=== PATIENT | female | born 1980 | race African-American/Black ===

== ENCOUNTER 2016-07-26 01:14 | Emergency (ER) | payer OTHER ==
[~2016-07-26] VITALS: Ht 157.5 cm; Wt 72.6 kg
--- NOTE | ~2016-07-26 | EKG ---
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
[~2016-07-26 01:14] MED LIST: NOHOMEMEDICATIONS; NORCO 5-325 TA1 EACH PO
[2016-07-26] MEDS ORDERED: AMBIEN 5 MG TABL5 M1 PO (01:29)
[2016-07-26] MEDS ORDERED: ZOFRAN ODT4 MG PO (01:29)
[2016-07-26 01:39] LABS: ABSOLUTE NEUTROPHILS 4.2 thou/uL (1.4-8.2); BASOPHILS 0.9 % (0.0-2.0); EOSINOPHILS 1.3 % (0.0-3.0); HEMATOCRIT 38.1 % (37.0-47.0); HEMOGLOBIN 12.5 gm/dL (12.0-15.0); LYMPHOCYTES 31.7 % (24.0-44.0); MCH 27.2 pg (26.0-34.0); MCHC 32.8 g/dL (28.0-37.0); MONOCYTES 5.9 % (1.0-8.0); PLATELET COUNT 182 thou/uL (150-400); POLYS 60.2 % (36.0-66.0); RBC 4.59 mil/uL (4.20-5.00); RDW 14.5 % (10.5-14.5)
[2016-07-26 01:41] LABS: MANUAL DIFF NO
[2016-07-26 01:45] LABS: ANION GAP 12 mmol/L (7-16); BUN 13 mg/dL (7-18); CALCIUM 8.8 mg/dL (8.5-10.1); CHLORIDE 99 mmol/L (98-107); CO2 23 mmol/L (21-32); CREATININE 1.2 mg/dL (0.6-1.0); GLUCOSE 152 mg/dL (74-106); POTASSIUM 3.4 mmol/L (3.5-5.1); SODIUM 134 mmol/L (136-145)
[2016-07-26 01:54] LABS: TROPONIN-I < 0.04 ng/mL (<0.04-0.07)
[2016-07-26 02:37] VITALS: BP 140/80
[2016-07-26 04:12] LABS: LARGE PLATELETS RARE
== END 2016-07-26 02:39 | disposition home or self-care (01) ==
LOC: ER 01:14
PROVIDERS: Emergency Medicine
DX: R07.89 Other chest pain (principal); R20.2 Paresthesia of skin; Z88.0 Allergy status to penicillin; Z88.6 Allergy status to analgesic agent

== ENCOUNTER 2020-11-07 23:55 | Emergency (ER) | payer OTHER ==
[~2020-11-07] VITALS: Ht 157.5 cm; Wt 82.6 kg
[~2020-11-07 23:55] MED LIST changes: +AMBIEN 5 MG TABL5 M1 PO; +ZOFRAN ODT4 MG PO
[2020-11-08] MEDS ORDERED: ZPAK PO (01:52)
[2020-11-08] MEDS ORDERED: MEDROLDOSEPACK PO (01:52)
[2020-11-08 02:12] VITALS: BP 132/73
== END 2020-11-08 02:08 | disposition home or self-care (01) ==
LOC: ER 23:55
DX: U07.1 COVID-19 (principal); Z98.890 Other specified postprocedural states

== ENCOUNTER 2020-11-19 21:13 | Emergency (ER) | payer OTHER ==
[~2020-11-19] VITALS: Ht 157.5 cm; Wt 82.6 kg
[~2020-11-19 21:13] MED LIST changes: +MEDROLDOSEPACK PO; +ZPAK PO
[2020-11-19 21:43] LABS: HEMOGLOBIN 12.8 gm/dL (12.0-15.0); MCH 27.8 pg (26.0-34.0); MCHC 32.9 g/dL (28.0-37.0); MCV 84.5 fL (80.0-100.0); RBC 4.61 mil/uL (4.20-5.00); RDW 12.9 % (10.5-14.5)
[2020-11-19 22:04] LABS: CALCIUM 8.8 mg/dL (8.5-10.1); POTASSIUM 3.9 mmol/L (3.5-5.1)
[2020-11-19 22:14] LABS: ALBUMIN 3.1 g/dL (3.4-5.0); TOTAL BILIRUBIN 0.3 mg/dL (0.2-1.0); TOTAL PROTEIN 7.5 g/dL (6.4-8.2)
[2020-11-19 22:29] VITALS: BP 108/64
--- NOTE | 2020-11-20 15:52 | EKG ---
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
== END 2020-11-19 22:46 | disposition home or self-care (01) ==
LOC: ER 21:13
PROVIDERS: Physician Assistant
DX: U07.1 COVID-19 (principal); R07.89 Other chest pain; Z98.890 Other specified postprocedural states; Z79.899 Other long term (current) drug therapy; Z88.0 Allergy status to penicillin; Z88.8 Allergy status to other drugs, medicaments and biological substances

== ENCOUNTER 2021-03-12 11:04 | Emergency (ER) | payer OTHER ==
[~2021-03-12] VITALS: Ht 157.5 cm; Wt 76.7 kg
[2021-03-12 11:12] VITALS: BP 148/85
== END 2021-03-12 13:23 | disposition home or self-care (01) ==
LOC: ER 11:04
DX: U07.1 COVID-19 (principal); Z88.0 Allergy status to penicillin; Z88.6 Allergy status to analgesic agent; Z98.890 Other specified postprocedural states